=== PATIENT | female | born 1985 | race Caucasian/White ===

== ENCOUNTER 2020-11-14 18:58 | Emergency (ER) | payer OTHER, SELFPAY ==
[2020-11-14 19:03] VITALS: BP 112/58; PULSE 83; RESP 18; TEMP 37.2; O2SAT 99
--- NOTE | 2020-11-14 19:09 | ED.BACK ---
HPI - Back Pain/Injury General Chief Complaint: Back Pain/Injury Stated Complaint: back pain Time Seen by Provider: 11/14/20 19:10 Source: patient and RN notes reviewed History of Present Illness HPI Narrative: Patient is a 35-year-old female who presents the urgent care with complaints of acute on chronic back pain. Patient states that she found out approximately 5 years ago that she had severe scoliosis and has not followed up with a neuro spine surgeon. Patient states that it bothers her every now and then especially when she has had a lot of activity or heavy lifting. Patient states that she bent over today to sweep up soiled from a spilled flowerpot and pulled something in the back. Patient states that she is been walking funny all day due to the pain . Patient states it does radiate down both legs. Patient states that the muscle relaxer that she is used in the past has significantly helped her pain and discomfort. No other acute complaints. No acute distress noted. Patient aware of the plan of care. Some parts of this dictation were generated by voice recognition software and may contain typographical and/or grammatical inaccuracies. Related Data Allergies Allergy/AdvReac Type Severity Reaction Status Date / Time No Known Allergies Allergy Unverified 08/15/18 17:08 Review of Systems Review of Systems: Narrative: CONSTITUTIONAL: Denies fever, chills, or sweats. EYES: Denies visual changes, redness, or discharge. ENT: Denies rhinorrhea, congestion, sore throat, or otalgia. CARDIOVASCULAR: Denies chest pain, palpitations, or edema. RESPIRATORY: Denies cough or dyspnea. GASTROINTESTINAL: Denies abdominal pain, nausea, vomiting, or diarrhea. GENITOURINARY: Denies dysuria or hematuria. SKIN: Denies rash or itching. MUSCULOSKELETAL: Reports of acute on chronic back pain NEUROLOGIC: Denies headache, numbness, or weakness. All other systems reviewed are negative, except as documented in HPI. PMFSH Comments At the time of my signature, I reviewed and agree with the nursing past medical, surgical, social, and family history. There is no relevant family history pertinent to the patient complaint. Exam Narrative: Exam Narrative: GENERAL: This is a well-nourished, well-developed patient, in no apparent distress. HEAD: normocephalic, atraumatic. EYES: PERRL. Sclera clear/white. Vision is grossly intact. EARS: External ears normal NOSE: External nose normal with no obvious nasal discharge, nares without redness, no rhinorrhea. THROAT: Mucous membranes moist NECK: Neck supple, SKIN: warm, intact with no suspicious lesions or rash, good texture and turgor. NEURO: awake, alert, and oriented to person, place and time. There were no obvious focal neurologic abnormalities. EXTREMITIES: No clubbing, cyanosis, or edema. BACK: Mild diffuse lumbar tenderness with positive bilateral SLE Course Vital Signs Vital signs: Vital Signs Temperature 99 F 11/14/20 19:03 Pulse Rate 83 11/14/20 19:03 Respiratory Rate 18 11/14/20 19:03 Blood Pressure 112/58 L 11/14/20 19:03 Pulse Oximetry 99 11/14/20 19:03 Temperature 99 F 11/14/20 19:03 Pulse Rate 83 11/14/20 19:03 Respiratory Rate 18 11/14/20 19:03 Blood Pressure 112/58 L 11/14/20 19:03 Pulse Oximetry 99 11/14/20 19:03 Reviewed MDM - Back Pain/Injury MDM Narrative Medical decision making narrative: Advised the patient to complete steroid regimen as prescribed. Be sure to eat and drink with the medication. Use Flexeril as needed for the muscle relaxer. Do not drive or operate heavy machinery while on the Flexeril, due to drowsiness. Most beneficial taking before bedtime. Use Tylenol/ibuprofen as needed for pain. If you develop any increase in pain associated with inability to move the legs?go to the emergency room. Follow-up with your PCP within 2 to 5 days or for worsening symptoms or failure to improve. Differential Diagnosis Differential diagnosis:
== END 2020-11-14 19:21 | disposition home or self-care (01) ==
PROVIDERS: Emergency Provider Nurse Practitioner Family
DX: G89.29 Other chronic pain (principal); M54.5 Low back pain
CPT/HCPCS: 99213; G0463

== ENCOUNTER 2020-12-30 08:16 | Emergency (ER) | payer OTHER, SELFPAY ==
[2020-12-30 08:21] VITALS: BP 109/56; PULSE 80; RESP 16; TEMP 37.2; O2SAT 99
--- NOTE | 2020-12-30 08:22 | ED.FEMALEGU ---
HPI - Female Genitourinary General Chief complaint: Urogenital-Female Stated complaint: Possible UTI Time Seen by Provider: 12/30/20 08:22 Source: patient and RN notes reviewed History of Present Illness HPI Narrative: Patient is a 35-year-old female who presents to the urgent care with complaints of a possible UTI. Patient states that she does get them frequently, however it has been approximately 2 years. States that she has had symptoms for approximately 3 days with urgency, frequency and burning with urination. Patient denies current hematuria, nausea, vomiting, fever, abdominal pain, back pain. Patient states that she took Azo on Monday and Monday without any improvement of symptoms. No other acute complaints. No acute distress noted. Patient aware of the plan of care. Some parts of this dictation were generated by voice recognition software and may contain typographical and/or grammatical inaccuracies. Related Data Allergies Allergy/AdvReac Type Severity Reaction Status Date / Time No Known Allergies Allergy Verified 12/30/20 08:26 Review of Systems Review of Systems: Narrative: CONSTITUTIONAL: Denies fever, chills, or sweats. EYES: Denies visual changes, redness, or discharge. ENT: Denies rhinorrhea, congestion, sore throat, or otalgia. CARDIOVASCULAR: Denies chest pain, palpitations, or edema. RESPIRATORY: Denies cough or dyspnea. GASTROINTESTINAL: Denies abdominal pain, nausea, vomiting, or diarrhea. GENITOURINARY: Reports of frequency, urgency, dysuria SKIN: Denies rash or itching. MUSCULOSKELETAL: Denies back pain, joint pain, or myalgia. NEUROLOGIC: Denies headache, numbness, or weakness. All other systems reviewed are negative, except as documented in HPI. PMFSH Comments At the time of my signature, I reviewed and agree with the nursing past medical, surgical, social, and family history. There is no relevant family history pertinent to the patient complaint. Exam Narrative: Exam Narrative: GENERAL: This is a well-nourished, well-developed patient, in no apparent distress. HEAD: normocephalic, atraumatic. EYES: PERRL. Sclera clear/white. Vision is grossly intact. EARS: External ears normal NOSE: External nose normal with no obvious nasal discharge, nares without redness, no rhinorrhea. THROAT: Mucous membranes moist NECK: Neck supple CARDIOVASCULAR: Regular rate and rhythm without murmurs, gallops, or rubs. RESPIRATORY: Clear to auscultation. Breath sounds equal bilaterally. No wheezes, rales, or rhonchi. GASTROINTESTINAL: Abdomen soft, non-tender, nondistended. SKIN: warm, intact with no suspicious lesions or rash, good texture and turgor. NEURO: awake, alert, and oriented to person, place and time. There were no obvious focal neurologic abnormalities. EXTREMITIES: No clubbing, cyanosis, or edema. BACK: Negative bilateral CVA tenderness Course Vital Signs Vital signs: Vital Signs Temperature 99 F 12/30/20 08:21 Pulse Rate 80 12/30/20 08:21 Respiratory Rate 16 12/30/20 08:21 Blood Pressure 109/56 L 12/30/20 08:21 Pulse Oximetry 99 12/30/20 08:21 Temperature 99 F 12/30/20 08:21 Pulse Rate 80 12/30/20 08:21 Respiratory Rate 16 12/30/20 08:21 Blood Pressure 109/56 L 12/30/20 08:21 Pulse Oximetry 99 12/30/20 08:21 Reviewed MDM - Female Genitourinary MDM Narrative Medical decision making narrative: Reviewed lab results with the patient. She is aware that urine analysis is indicative of a urinary tract infection. Advised the patient to complete oral antibiotics as prescribed. Use Pyridium as needed for bladder spasms. Increase your water intake and avoid sugary and caffeinated drinks. Do not bathe in soapy baths or wear swim wear for long periods of time. If you develop any increase in symptoms associated with blood in the urine, nausea, vomiting, abdominal pain?go to the emergency room. Follow-up with your PCP within 2 to 5 days or for worsening symptoms or failure
== END 2020-12-30 08:35 | disposition home or self-care (01) ==
PROVIDERS: Emergency Provider Nurse Practitioner Family
DX: N39.0 Urinary tract infection, site not specified (principal); J45.909 Unspecified asthma, uncomplicated
CPT/HCPCS: 81003; 87077; 87086; 87088; 87186; 99213; G0463

== ENCOUNTER 2021-10-14 19:15 | Emergency (ER) | payer OTHER, SELFPAY ==
--- NOTE | ~2021-10-14 | XR_ITS ---
XR chest 2V DATE: 10/14/2021 19:40 INDICATION: Cough for 2 days. Upper back pain. TECHNIQUE: 2 views COMPARISON: None FINDINGS: Normal heart size. No hilar or mediastinal enlargement. No pulmonary infiltrate or consolid ation, pleural effusion or pulmonary vascular congestion or pneumothorax. Dextroscoliosis of the thoracic spine. IMPRESSION: No active cardiopulmonary disease Reviewed, dictated and finalized at location A.
[2021-10-14 19:20] VITALS: BP 121/74; PULSE 98; RESP 20; TEMP 37.8; O2SAT 98
--- NOTE | 2021-10-14 19:28 | ED.URI ---
HPI - URI/Sore Throat General Chief Complaint: Upper Respiratory Infection Stated Complaint: chest tightness from coughing Time Seen by Provider: 10/14/21 19:29 Source: patient and RN notes reviewed Mode of arrival: ambulatory Limitations: no limitations History of Present Illness HPI Narrative: 36-year-old female presents with concern for cough with upper back pain. She reports also chest tightness. She reports runny nose, sore throat. She reports symptoms started 3 days ago. Reports she was concerned about the upper back pain. She reports her children have cold symptoms. She denies shortness of breath, chest pain, body aches, chills, sweats. MD elicited complaint: cough and sore throat Related Data Allergies Allergy/AdvReac Type Severity Reaction Status Date / Time No Known Allergies Allergy Verified 10/14/21 19:28 Review of Systems Review of Systems: CONSTITUTIONAL: Reports malaise. Denies chills, sweats, or fever. EYES: Denies visual changes, redness, or discharge. ENT: Reports rhinorrhea, congestion, otalgia and sore throat. CARDIOVASCULAR: Denies chest pain, palpitations, or edema. RESPIRATORY: Reports cough. Denies dyspnea. GASTROINTESTINAL: Denies abdominal pain, nausea, vomiting, diarrhea SKIN: Denies rash or itching. MUSCULOSKELETAL: Denies myalgia. Reports upper back pain NEUROLOGIC: Denies headache. All systems reviewed & are unremarkable except as noted in HPI and below PMFSH Comments At time of signature, agree with nursing past medical, surgical, social and family history. There is no relevant family history pertinent to the presenting complaint Exam Narrative: GENERAL: Well-appearing, well-nourished, and in no acute distress. HEAD: Normocephalic EYES: PERRLA, conjunctivae clear ENT: Nares clear, clear discharge. Mucous membranes moist. TM pearly edwards with sharp light reflex bilaterally; no tragal tenderness. Oropharynx not erythematous without lesions. Tonsils not enlarged and without exudate, no drooling, no hoarseness, no trismus, uvula midline. NECK: Supple. No lymphadenopathy CHEST: Clear to auscultation, slightly diminished in the right upper lobe. No wheezing, rhonchi, rales, or stridor. No respiratory distress, speaks in full sentences. HEART: Regular rate and rhythm. No murmur heard. SKIN: Warm, dry, no rash. NEURO: Alert and oriented x3. PSYCH: Normal mood and affect Course Course Emergency Course: Patient is aware of diagnosis, understands and agrees to treatment plan. Anticipatory guidance given. Patient agrees to follow-up as directed and is aware of reasons to seek care at the emergency department. Portions of this record may have been created with voice recognition software Level of Care: Express Care Visit Vital Signs Vital signs: Vital Signs Temperature 100.1 F H 10/14/21 19:20 Pulse Rate 98 10/14/21 19:20 Respiratory Rate 20 10/14/21 19:20 Blood Pressure 121/74 10/14/21 19:20 Pulse Oximetry 98 10/14/21 19:20 Temperature 100.1 F H 10/14/21 19:20 Pulse Rate 98 10/14/21 19:20 Respiratory Rate 20 10/14/21 19:20 Blood Pressure 121/74 10/14/21 19:20 Pulse Oximetry 98 10/14/21 19:20 Reviewed. MDM - URI/Sore Throat MDM Narrative Medical decision making narrative: Differential diagnosis considered: Anaya virus, strep pharyngitis, allergic rhinitis, upper respiratory tract infection, sinusitis, rhinosinusitis, nasopharyngitis. viral pharyngitis, otitis media, otitis externa, pneumonia, bronchitis, viral cough syndrome, viral syndrome, and influenza. Exam findings show no acute concerns or changes; patient is non-toxic appearing and is in no distress. Patient is appropriate for outpatient treatment and follow-up. Lab Data Attestation: I reviewed the patient's lab results. Imaging Data My impression: Images reviewed, interpreted by radiologist, agree, see report. Radiologist's impression: XR chest 2V DATE: 10/14/2021 19:40 INDICATION: Cough for 2
== END 2021-10-14 19:57 | disposition home or self-care (01) ==
PROVIDERS: Emergency Provider Nurse Practitioner
DX: J10.1 Influenza due to other identified influenza virus with other respiratory manifestations (principal)
CPT/HCPCS: 71046; 87804; 99213; G0463

== ENCOUNTER 2022-06-27 09:59 | Emergency (ER) | payer OTHER, SELFPAY ==
[2022-06-27 10:10] VITALS: BP 117/74; PULSE 88; RESP 16; TEMP 36.7; O2SAT 98
--- NOTE | 2022-06-27 12:25 | ED.URI ---
HPI - URI/Sore Throat General Chief Complaint: Upper Respiratory Infection Stated Complaint: cold flu Time Seen by Provider: 06/27/22 12:05 Source: patient, RN notes reviewed and old records reviewed Mode of arrival: ambulatory Limitations: no limitations History of Present Illness HPI Narrative: mild body achesm,st mild MD elicited complaint: cough and sore throat Related Data Allergies Allergy/AdvReac Type Severity Reaction Status Date / Time No Known Allergies Allergy Verified 10/14/21 19:28 Review of Systems Review of Systems: CONSTITUTIONAL: Denies malaise, chills, sweats, or fever. EYES: Denies visual changes, redness, or discharge. ENT: Reports rhinorrhea, congestion, sinus pain, otalgia and sore throat. CARDIOVASCULAR: Denies chest pain, palpitations, or edema. RESPIRATORY: Reports cough.? Denies dyspnea. GASTROINTESTINAL: Denies abdominal pain, nausea, vomiting, diarrhea SKIN: Denies rash or itching. MUSCULOSKELETAL: Denies myalgia. NEUROLOGIC: Denies headache. All systems reviewed & are unremarkable except as noted in HPI and below PMFSH Comments At time of signature, agree with nursing past medical, surgical, social and family history. There is no relevant family history pertinent to the presenting complaint Exam Narrative: GENERAL: Well-appearing, well-nourished, and in no acute distress. HEAD: Normocephalic EYES: PERRLA, conjunctivae clear ENT: Nares clear, turbinates edematous and erythematous, clear discharge. Mucous membranes moist. TM pearly edwards with dull light reflex bilaterally; no tragal tenderness. Oropharynx erythematous without lesions. Tonsils not enlarged and without exudate, no drooling, no hoarseness, no trismus, uvula midline. NECK: Supple. No lymphadenopathy CHEST: Clear to auscultation, breath sounds equal. No wheezing, rhonchi, rales, or stridor. No respiratory distress, speaks in full sentences. HEART: Regular rate and rhythm. No murmur heard. SKIN: Warm, dry, no rash. NEURO: Alert and oriented x3. PSYCH: Normal mood and affect Course Course Emergency Course: Patient is aware of diagnosis, understands and agrees to treatment plan.? Anticipatory guidance given.? Patient agrees to follow-up as directed and is aware of reasons to seek care at the emergency department. Portions of this record may have been created with voice recognition software Level of Care: Express Care Visit Vital Signs Vital signs: Vital Signs Temperature 36.7 C 06/27/22 10:10 Pulse Rate 88 06/27/22 10:10 Respiratory Rate 16 06/27/22 10:10 Blood Pressure 117/74 06/27/22 10:10 Pulse Oximetry 98 06/27/22 10:10 Oxygen Delivery Room Air 06/27/22 10:10 Temperature 36.7 C 06/27/22 10:10 Pulse Rate 88 06/27/22 10:10 Respiratory Rate 16 06/27/22 10:10 Blood Pressure 117/74 06/27/22 10:10 Pulse Oximetry 98 06/27/22 10:10 Oxygen Delivery Room Air 06/27/22 10:10 Reviewed MDM - URI/Sore Throat MDM Narrative Medical decision making narrative: Differential diagnosis considered: Anaya virus, strep pharyngitis, allergic rhinitis, upper respiratory tract infection, sinusitis, rhinosinusitis, nasopharyngitis. viral pharyngitis, otitis media, otitis externa, pneumonia, bronchitis, viral cough syndrome, viral syndrome, and influenza.? Exam findings show no acute concerns or changes; patient is non-toxic appearing and is in no distress.? Patient is appropriate for outpatient treatment and follow-up. Lab Data Attestation: I reviewed the patient's lab results. Discharge Plan Discharge Follow-up/Referrals: PHYSICIAN,[employer] OPERATOR [Primary Care Provider] -
--- NOTE | 2022-06-27 12:44 | ED.URI ---
HPI - URI/Sore Throat General Chief Complaint: Upper Respiratory Infection Stated Complaint: cold flu Time Seen by Provider: 06/27/22 12:05 Source: patient, RN notes reviewed and old records reviewed Mode of arrival: ambulatory Limitations: no limitations History of Present Illness HPI Narrative: 37 year old female who presents to [facility] care with complaints of 2 days of mild sore throat, body aches and some mild fevers, has had recent exposure to COVID.Patient reports that she has had COVID vaccinations and booster. Patient reports that she has taken some OTC cold medications and also some Tylenol and Ibuprofen, has not taken anything today though. Patient denies any dyspnea with no tachypnea noted with SAO2 98% on room air. MD elicited complaint: fever, cough, sore throat and other (body aches) Pertinent past history: asthma Onset (ago): day(s) (2) Able to tolerate fluids by mouth: Yes Treatments prior to arrival: acetaminophen, ibuprofen and cold medicine Related Data Allergies Allergy/AdvReac Type Severity Reaction Status Date / Time No Known Allergies Allergy Verified 10/14/21 19:28 Review of Systems Review of Systems: CONSTITUTIONAL:Reports malaise, chills, sweats, or fever. EYES: Denies visual changes, redness, or discharge. ENT: Reports rhinorrhea, congestion, sinus pain, no otalgia and sore throat. CARDIOVASCULAR: Denies chest pain, palpitations, or edema. RESPIRATORY: Reports cough.? Denies dyspnea. GASTROINTESTINAL: Denies abdominal pain, nausea, vomiting, diarrhea SKIN: Denies rash or itching. MUSCULOSKELETAL:Reports myalgia. NEUROLOGIC: Denies headache. All systems reviewed & are unremarkable except as noted in HPI and below PMFSH Past Medical History Medical History (Updated 07/04/22 @ 19:54 by Liza Long NP) Anxiety Asthma COVID-19 06/27/2022 diagnosed Surgical History Surgical History (Updated 07/04/22 @ 19:51 by Liza Long NP) Previous section Social History Social History (Updated 07/04/22 @ 19:52 by Liza Long NP) Smoking status: Never smoker Alcohol intake: current Alcohol use details: social Substance use: never Gender identity (if verbalized by the patient): Female Comments At time of signature, agree with nursing past medical, surgical, social and family history. There is no relevant family history pertinent to the presenting complaint Exam Narrative: GENERAL: Well-appearing, well-nourished, and in no acute distress. HEAD: Normocephalic EYES: PERRLA, conjunctivae clear ENT: Nares clear, turbinates edematous and erythematous, clear discharge. Mucous membranes moist. TM pearly edwards with dull light reflex bilaterally; no tragal tenderness. Oropharynx erythematous without lesions. Tonsils not enlarged and without exudate, no drooling, no hoarseness, no trismus, uvula midline. NECK: Supple. No lymphadenopathy CHEST: Clear to auscultation, breath sounds equal. No wheezing, rhonchi, rales, or stridor. No respiratory distress, speaks in full sentences.some cough noted SAO2 98% on room air HEART: Regular rate and rhythm. No murmur heard. SKIN: Warm, dry, no rash. NEURO: Alert and oriented x3. PSYCH: Normal mood and affect Course Course Emergency Course: Patient is aware of diagnosis, understands and agrees to treatment plan.? Anticipatory guidance given.? Patient agrees to follow-up as directed and is aware of reasons to seek care at the emergency department. Portions of this record may have been created with voice recognition software Level of Care: Express Care Visit Vital Signs Vital signs: Vital Signs Temperature 36.7 C 06/27/22 10:10 Pulse Rate 88 06/27/22 10:10 Respiratory Rate 16 06/27/22 10:10 Blood Pressure 117/74 06/27/22 10:10 Pulse Oximetry 98 06/27/22 10:10 Oxygen Delivery Room Air 06/27/22 10:10 Temperature 36.7 C 06/27/22 10:10 Pulse Rate 88 06/27/22 10:10
== END 2022-06-27 12:55 | disposition home or self-care (01) ==
PROVIDERS: Emergency Provider Registered Nurse
DX: U07.1 COVID-19 (principal)
CPT/HCPCS: 87426; 87804; 99213; C9803; G0463

== ENCOUNTER 2022-08-16 12:47 | Emergency (ER) | payer OTHER, SELFPAY ==
[2022-08-16 12:53] VITALS: BP 113/70; PULSE 76; RESP 16; TEMP 36.3; O2SAT 100
--- NOTE | 2022-08-16 12:54 | ED.URI ---
HPI - URI/Sore Throat General Chief Complaint: Upper Respiratory Infection Stated Complaint: Sore Throat Source: patient and RN notes reviewed History of Present Illness HPI Narrative: 37 yo F presents to urgent care with complaints of a sore throat starting this morning. Pt denies any fevers, chills, N/V/D, ear pain, or JASON. Related Data Allergies Allergy/AdvReac Type Severity Reaction Status Date / Time No Known Allergies Allergy Verified 10/14/21 19:28 Review of Systems Review of Systems: CONSTITUTIONAL: Denies fever, chills, or sweats. EYES: Denies visual changes, redness, or discharge. ENT: reports sore throat CARDIOVASCULAR: Denies chest pain, palpitations, or edema. RESPIRATORY: Denies cough or dyspnea. GASTROINTESTINAL: Denies abdominal pain, nausea, vomiting, or diarrhea. GENITOURINARY: Denies dysuria or hematuria. SKIN: Denies rash or itching. MUSCULOSKELETAL: Denies back pain, joint pain, or myalgia. NEUROLOGIC: Denies headache, numbness, or weakness. [facility] Past Medical History Medical History (Updated 08/16/22 @ 13:05 by Masha Swenson, [employer]) Anxiety Asthma COVID-19 06/27/2022 diagnosed Surgical History Surgical History (Updated 07/04/22 @ 19:51 by Liza Long NP) Previous section Social History Social History (Updated 07/04/22 @ 19:52 by Liza Long NP) Smoking status: Never smoker Alcohol intake: current Alcohol use details: social Substance use: never Gender identity (if verbalized by the patient): Female Comments At the time of my signature, I reviewed and agree with the nursing past medical, surgical, social, and family history. There is no relevant family history pertinent to the patient complaint. Exam Narrative: GENERAL: This is a well-nourished, well-developed patient, in no apparent distress. HEAD: normocephalic, atraumatic. EYES: PERRL. Sclera clear/white. Vision is grossly intact. EARS: External ears normal, auditory canals clear and without drainage, TMs normal without perforation. Hearing grossly intact. NOSE: External nose normal with no obvious nasal discharge, nares without redness, no rhinorrhea. THROAT: Mucous membranes moist. posterior pharynx erythremic. exudate noted on tonsils. Tonsils 2+ bilaterally. NECK: Neck supple, non-tender without lymphadenopathy, masses or thyromegaly. CARDIOVASCULAR: Regular rate and rhythm without murmurs, gallops, or rubs. RESPIRATORY: Clear to auscultation. Breath sounds equal bilaterally. No wheezes, rales, or rhonchi. GASTROINTESTINAL: Abdomen soft, non-tender, nondistended. Bowel sounds are active. No hepato-splenomegaly, or palpable masses. No guarding. SKIN: warm, intact with no suspicious lesions or rash, good texture and turgor. NEURO: awake, alert, and oriented to person, place and time. There were no obvious focal neurologic abnormalities. Course Course Level of Care: Express Care Visit Vital Signs Vital signs: Vital Signs Temperature 97.4 F L 08/16/22 12:53 Pulse Rate 76 08/16/22 12:53 Respiratory Rate 16 08/16/22 12:53 Blood Pressure 113/70 08/16/22 12:53 Pulse Oximetry 100 08/16/22 12:53 Oxygen Delivery Room Air 08/16/22 12:53 Temperature 97.4 F L 08/16/22 12:53 Pulse Rate 76 08/16/22 12:53 Respiratory Rate 16 08/16/22 12:53 Blood Pressure 113/70 08/16/22 12:53 Pulse Oximetry 100 08/16/22 12:53 Oxygen Delivery Room Air 08/16/22 12:53 reviewed. MDM - URI/Sore Throat MDM Narrative Medical decision making narrative: After 24 hours on antibiotics throw tooth brush away and start using a new one. Do not share drinks. Take Motrin alternating with Tylenol for pain and fever alternating every 4 hours. Increase fluids, avoid caffeine. Follow up with Primary provider if not getting better this week Differential Diagnosis Differential diagnosis: Likely upper respiratory infection, otitis media, sinusitis and pharyngitis Lab D
== END 2022-08-16 13:10 | disposition home or self-care (01) ==
PROVIDERS: Emergency Provider Nurse Practitioner Family; PCP Physician Assistant
DX: J02.0 Streptococcal pharyngitis (principal); J45.909 Unspecified asthma, uncomplicated; Z86.16 Personal history of COVID-19
CPT/HCPCS: 87880; 99213; G0463

== ENCOUNTER 2023-01-05 18:24 | Emergency (ER) | payer OTHER, SELFPAY ==
--- NOTE | 2023-01-05 18:33 | ED.URI ---
HPI - URI/Sore Throat General Chief Complaint: Upper Respiratory Infection Stated Complaint: Sore Throat History of Present Illness HPI Narrative: 37-year-old female presented for complaint of sore throat for 2 days. Endorses two of her children have similar symptoms. She has not taken anything for symptoms. She denies any other symptoms. Related Data Allergies Allergy/AdvReac Type Severity Reaction Status Date / Time No Known Allergies Allergy Verified 10/14/21 19:28 Review of Systems Review of Systems: CONSTITUTIONAL: Denies body aches, fever, chills, or sweats. EYES: Denies visual changes, redness, or discharge. ENT: reports sore throat Denies rhinorrhea, congestion, or otalgia. CARDIOVASCULAR: Denies chest pain, palpitations, or edema. RESPIRATORY: Denies dyspnea. GASTROINTESTINAL: Denies abdominal pain, nausea, vomiting, or diarrhea. SKIN: Denies rash, itching, or wounds. MUSCULOSKELETAL: Denies back pain, joint pain, or myalgia. NEUROLOGIC: Denies headache PMFSH Past Medical History Medical History Anxiety Asthma COVID-19 06/27/2022 diagnosed Surgical History Surgical History Previous section Social History Social History Smoking status: Never smoker Alcohol intake: current Alcohol use details: social Substance use: never Gender identity (if verbalized by the patient): Female Exam Narrative: GENERAL: well-appearing, no acute distress. EYES: conjunctivae clear ENT: Mucous membranes moist. TMs pearly edwards with normal light reflex bilaterally; no tragal tenderness. Oropharynx mildly erythematous Tonsils not enlarged, no exudate. No drooling, no hoarseness, no trismus, uvula midline. No tripod positioning, hot potato voice, or soft palate swelling. NECK: Supple. No lymphadenopathy CHEST: Clear to auscultation, breath sounds equal. No respiratory distress, speaks in full sentences. HEART: Regular rate and rhythm. No murmur heard. SKIN: Warm, dry, no rash. NEURO: Alert and oriented x3. Course Course Emergency Course: Patient is aware of diagnosis, understands and agrees to treatment plan. Anticipatory guidance given. Patient agrees to follow-up as directed and is aware of reasons to seek care at the emergency department. Portions of this record may have been created with voice recognition software Level of Care: Express Care Visit Vital Signs Vital signs: Vital Signs Temperature 97.9 F 01/05/23 18:40 Pulse Rate 88 01/05/23 18:40 Respiratory Rate 20 01/05/23 18:40 Blood Pressure 132/79 01/05/23 18:40 Pulse Oximetry 98 01/05/23 18:40 Oxygen Delivery Room Air 01/05/23 18:40 Temperature 97.9 F 01/05/23 18:40 Pulse Rate 88 01/05/23 18:40 Respiratory Rate 20 01/05/23 18:40 Blood Pressure 132/79 01/05/23 18:40 Pulse Oximetry 98 01/05/23 18:40 Oxygen Delivery Room Air 01/05/23 18:40 MDM - URI/Sore Throat MDM Narrative Medical decision making narrative: Neg strep result reviewed with pt. Advise supportive treatments. Patient is appropriate for outpatient treatment and follow-up. Differential Diagnosis Differential diagnosis: Likely upper respiratory infection, viral infection and pharyngitis Lab Data Labs: Strep Screen Presumptive Negative *(Reference Range: Negative)* Discharge Plan Discharge Clinical Impression: Pharyngitis Patient Disposition: Home, Self-Care Condition: Stable Instructions: Pharyngitis (ED) Additional Instructions: Rapid strep swab was negative today You will be notified in a few days if the culture comes back positive for strep, and appropriate antibiotics will be called in at that time. if symptoms are due to a viral illness, it is no
[2023-01-05 18:40] VITALS: BP 132/79; PULSE 88; RESP 20; TEMP 36.6; O2SAT 98
== END 2023-01-05 19:13 | disposition home or self-care (01) ==
PROVIDERS: Emergency Provider Nurse Practitioner Family; PCP Physician Assistant
DX: J02.9 Acute pharyngitis, unspecified (principal); J45.909 Unspecified asthma, uncomplicated; Z86.16 Personal history of COVID-19
CPT/HCPCS: 87081; 87880; 99213; G0463

== ENCOUNTER 2023-09-19 18:15 | Emergency (ER) | payer OTHER, SELFPAY ==
--- NOTE | ~2023-09-19 | XR_ITS ---
EXAMINATION: XR chest 2V Exam Date/Time: 09/19/2023 19:05 CDT HISTORY: COUGH/CONGESTION X 2 DAYS. SOB. CHEST TIGHTNESS. Comparison: 10/14/2021. RESULT: Lines, tubes, and devices: None. Lungs and pleura: Clear. Cardiomediastinal silhouette: Stable. Other: No acute osseous or upper abdominal finding. IMPRESSION: No acute cardiopulmonary process. Reviewed, dictated and finalized at location K.
[2023-09-19 18:20] VITALS: BP 121/69; PULSE 83; RESP 20; TEMP 37.3; O2SAT 100
--- NOTE | 2023-09-19 18:51 | ED.URI ---
HPI - URI/Sore Throat General Chief Complaint: Upper Respiratory Infection Stated Complaint: tight throat/chest pain Time Seen by Provider: 09/19/23 18:52 History of Present Illness HPI Narrative: 38-year-old female presented for complaint of cough, chest tightness, and feels swollen lymph nodes in neck. Chest tightness is worse with deep breaths, endorses sob with exertion. Symptoms are worse with lying flat. states cough is productive of yellow sputum. Also reports nasal congestion and body aches. Not taking anything for symptoms. Denies sick contacts. Denies cp, palpitations, n/v/d/f/c. Related Data Allergies Allergy/AdvReac Type Severity Reaction Status Date / Time No Known Allergies Allergy Verified 10/14/21 19:28 Review of Systems Review of Systems: CONSTITUTIONAL: Denies body aches, fever, chills, or sweats. EYES: Denies visual changes, redness, or discharge. ENT: reports rhinorrhea, congestion, Denies sore throat or otalgia. CARDIOVASCULAR: Denies chest pain, palpitations, or edema. RESPIRATORY: reports cough, dyspnea. GASTROINTESTINAL: Denies abdominal pain, nausea, vomiting, or diarrhea. SKIN: Denies rash, itching, or wounds. MUSCULOSKELETAL: Denies back pain, joint pain, or myalgia. [facility] Past Medical History Medical History Anxiety Asthma COVID-19 06/27/2022 diagnosed Surgical History Surgical History Previous section Social History Social History Smoking status: Never smoker Alcohol intake: current Alcohol use details: social Substance use: never Gender identity (if verbalized by the patient): Female Exam Narrative: GENERAL: well-appearing, no acute distress. EYES: conjunctivae clear ENT: Mucous membranes moist. TMs pearly edwards with normal light reflex bilaterally; no tragal tenderness. Oropharynx erythematous without lesions. Tonsils not enlarged and without exudate. No drooling, no hoarseness, no trismus, uvula midline. No tripod positioning, hot potato voice, or soft palate swelling. NECK: Supple. No lymphadenopathy CHEST: Clear to auscultation, breath sounds equal. No respiratory distress, speaks in full sentences. Mild tenderness across chest with palpation. Speaks full sentences without difficulty. HEART: Regular rate and rhythm. No murmur heard. SKIN: Warm, dry, no rash. NEURO: Alert and oriented x3. Course Course Emergency Course: Patient is aware of diagnosis, understands and agrees to treatment plan. Anticipatory guidance given. Patient agrees to follow-up as directed and is aware of reasons to seek care at the emergency department. Portions of this record may have been created with voice recognition software Level of Care: Express Care Visit Vital Signs Vital signs: Vital Signs Temperature 99.1 F 09/19/23 18:20 Pulse Rate 83 09/19/23 18:20 Respiratory Rate 20 09/19/23 18:20 Blood Pressure 121/69 09/19/23 18:20 Pulse Oximetry 100 09/19/23 18:20 Oxygen Delivery Room Air 09/19/23 18:20 Temperature 99.1 F 09/19/23 18:20 Pulse Rate 83 09/19/23 18:20 Respiratory Rate 20 09/19/23 18:20 Blood Pressure 121/69 09/19/23 18:20 Pulse Oximetry 100 09/19/23 18:20 Oxygen Delivery Room Air 09/19/23 18:20 MDM - URI/Sore Throat MDM Narrative Medical decision making narrative: Results of chest x-ray reviewed with patient. Discussed physical exam findings and Rx's. Advised supportive measures and signs/symptoms to go to the ER. Pt is appropriate for outpt treatment and f/u. Differential Diagnosis Differential diagnosis: Likely upper respiratory infection, sinusitis, viral infection, bronchitis, influenza and pharyngitis Discharge Plan Discharge Clinical Impression: Bronchitis Patient Disposition: Home, Self-Care Condition: Stable
== END 2023-09-19 19:32 | disposition home or self-care (01) ==
PROVIDERS: Emergency Provider Nurse Practitioner Family; PCP Physician Assistant
DX: J40 Bronchitis, not specified as acute or chronic (principal); J45.909 Unspecified asthma, uncomplicated; Z86.16 Personal history of COVID-19
CPT/HCPCS: 71046; 99213; G0463